=== PATIENT | female | born 1975 | race Two or more races ===

== ENCOUNTER 2017-03-29 17:11 | Emergency (ER) | payer MEDICAID, OTHER ==
[2017-03-29 17:20] VITALS: BP 118/56
== END 2017-03-29 20:18 | disposition left against medical advice (07) ==
LOC: ER 17:11
DX: M79.1 Myalgia (principal); Z53.21 Procedure and treatment not carried out due to patient leaving prior to being seen by health care provider

== ENCOUNTER 2017-03-29 21:45 | Emergency (ER) | payer MEDICAID ==
[~2017-03-29] VITALS: Ht 149.9 cm; Wt 38.6 kg
[2017-03-30] VITALS: BP 128/82
[2017-03-30] MEDS ORDERED: traMADol HCL 50 MG TAB PO ONE (00:45)
== END 2017-03-30 | disposition home or self-care (01) ==
LOC: EDBD 21:45 → ER 21:50
DX: G89.4 Chronic pain syndrome (principal); G80.9 Cerebral palsy, unspecified; Z76.0 Encounter for issue of repeat prescription; Z88.8 Allergy status to other drugs, medicaments and biological substances

== ENCOUNTER 2017-05-02 16:54 | Emergency (ER) | payer MEDICAID ==
[~2017-05-02] VITALS: Ht 152.4 cm; Wt 40.8 kg
[2017-05-02] MEDS ORDERED: NALBUPHINE HCL 10 MG/1ml INJECTION IV ONE (22:00)
[2017-05-02] MEDS ORDERED: LORazepam 2MG/ML-1ML VIAL IV ONE (22:00)
[2017-05-02] MEDS ORDERED: SODIUM CHLORIDE 0.9% 1,000 ML IV ONE (22:00)
[2017-05-02 22:41] LABS: Basophils # (auto) 0.1 uL; Eosinophils # (auto) 0 uL; Hemoglobin 11.6 g/dL (12.2-16.2); Monocytes # (auto) 0.4 uL; Neutrophils # (auto) 8.9 uL
[2017-05-02 22:42] LABS: Basophils % (auto) 0.7 % (0.0-2.0); Hematocrit 35.1 % (36.0-46.0); Lymphocytes # (auto) 0.3 uL; Lymphocytes % (auto) 3.4 % (10.0-50.0); Mean Corpuscular Hemoglobin 28.5 pg (28.0-32.0); Mean Corpuscular Hgb Conc. 33.1 g/dL (32.0-36.0); Mean Corpuscular Volume 85.9 fL (80.0-100.0); Mean Platelet Volume 7.2 fL (6.9-10.8); Monocytes % (auto) 4.3 % (0.0-12.0); Neutrophils % (auto) 91.6 % (37.0-80.0); Platelet Count (auto) 476 10^3/uL (140-450); Red Cell Distribution Width 17.2 % (11.8-14.3); White Blood Cell 9.7 10^3/uL (4.4-10.8)
[2017-05-02 23:00] LABS: Albumin 2.7 g/dL (3.4-5.0); Calcium 7.8 mg/dL (8.5-10.1); Potassium 3.3 mmol/L (3.5-5.1)
[2017-05-02] MEDS ORDERED: HYDROmorphone HCL 2 MG/ML VL IV ONE (23:00)
[2017-05-02 23:07] LABS: BUN/Creatinine Ratio 88.2; Bilirubin, Total 0.4 mg/dL (0.2-1.0); Total Protein 6.1 g/dL (6.4-8.2)
[2017-05-03 01:33] VITALS: BP 148/72
== END 2017-05-03 01:57 | disposition left against medical advice (07) ==
LOC: EDBD 16:54 → ER 16:57
DX: K59.00 Constipation, unspecified (principal); Z72.89 Other problems related to lifestyle; Z53.29 Procedure and treatment not carried out because of patient's decision for other reasons
CPT/HCPCS: 36415; 80053; 85025; 96361; 96374; 96375; 99285; J1170; J2060; J2300; J7030

== ENCOUNTER 2017-05-19 23:16 | Inpatient (IN) | payer MEDICAID ==
[~2017-05-19] VITALS: Ht 152.4 cm; Wt 44.8 kg
[~2017-05-19 23:16] MED LIST: CARB200T PO; HYDR-4683 PO; LISI-646 PO; PRE5T PO
[2017-05-20 00:52] LABS: Basophils # (auto) 0.1 uL; Eosinophils # (auto) 0 uL; Hemoglobin 10.9 g/dL (12.2-16.2); Lymphocytes # (auto) 0.5 uL; Mean Corpuscular Hemoglobin 26.5 pg (28.0-32.0); Monocytes # (auto) 1.1 uL; Neutrophils # (auto) 15.3 uL; Neutrophils % (auto) 90.1 % (37.0-80.0); Red Cell Distribution Width 17.8 % (11.8-14.3)
[2017-05-20 00:54] LABS: Basophils % (auto) 0.3 % (0.0-2.0); Hematocrit 34.1 % (36.0-46.0); Lymphocytes % (auto) 2.9 % (10.0-50.0); Mean Corpuscular Hgb Conc. 31.9 g/dL (32.0-36.0); Mean Corpuscular Volume 83.1 fL (80.0-100.0); Monocytes % (auto) 6.7 % (0.0-12.0); Nucleated Red Blood Cells % 0.2 %; Platelet Count (auto) 392 10^3/uL (140-450); White Blood Cell 16.9 10^3/uL (4.4-10.8)
[2017-05-20 01:11] LABS: Acetaminophen < 2.0 ug/mL (10-30); Salicylate < 1.7 mg/dL (2.8-20.0)
[2017-05-20 01:12] LABS: Alanine Aminotransferase 14 U/L (13-56); Anion Gap 11 (5-15); Aspartate Aminotransferase 11 U/L (15-37); BUN/Creatinine Ratio 62.5; Blood Alcohol < 3.0 mg/dL (0-5); Blood Urea Nitrogen 10 mg/dL (7-18); Calcium 8.8 mg/dL (8.5-10.1); Carbon Dioxide 29 mmol/L (21-32); Chloride 98 mmol/L (98-107); GFR African American 655 mL/min; GFR Non-African American 541 mL/min; Glucose 117 mg/dL (74-106); Sodium 138 mmol/L (136-145)
[2017-05-20 01:17] LABS: Alkaline Phosphatase 95 U/L (45-117)
[2017-05-20 01:21] LABS: Potassium 2.9 mmol/L (3.5-5.1)
[2017-05-20] MEDS ORDERED: POTASSIUM CHL 20 Meq TABLET PO ONE (01:45)
[2017-05-20] MEDS ORDERED: ASPirin 81 mg TAB PO ONE (02:00)
[2017-05-20] MEDS ORDERED: NITROGLYCERIN 0.4 MG SL TAB SL ONE (02:00)
[2017-05-20] MEDS ORDERED: POTASSIUM CHL 10% (20 MEQ/15ML) 15ml ORAL SOLN PO ONE (02:00)
[2017-05-20] MEDS ORDERED: SODIUM CHLORIDE 0.9% 1,000 ML IV ONE ×2 (02:42)
[2017-05-20] MEDS ORDERED: PIPERACILLIN-TAZOB 3.375GM 50 ML IV ONE (02:45)
[2017-05-20] MEDS ORDERED: ACETAMINOPHEN 500 MG TAB PO PRN (03:30)
[2017-05-20] MEDS ORDERED: MORPHINE SULF INJ 2 MG/ML SYRINGE 1ML ONE ×3 (04:13→14:34)
[2017-05-20] MEDS: ONDANSETRON HCL 4 MG/2 ML VIAL IV PRN (04:23)
[2017-05-20] MEDS: MORPHINE SULFATE 4 MG/ML SYR/VIAL IV PRN ×2 (04:23→09:59)
[2017-05-20] MEDS ORDERED: SODIUM CHLORIDE 0.9% 1,000 ML IV SCH (06:15)
[2017-05-20] MEDS: cefTRIAXone 1GM/10ml IVPUSH 10 ML IV SCH (09:16)
[2017-05-20] MEDS: SODIUM CHLORIDE 0.9% 1,000 ML IV SCH ×2 (09:17→20:22)
[2017-05-20] MEDS: GABAPENTIN 300 MG CAP PO SCH ×2 (09:17→22:03)
[2017-05-20] MEDS: HYDROcodone-ACET 5/325MG TAB PO PRN ×2 (09:18→16:36)
[2017-05-20] MEDS: LISINOPRIL 20 MG TAB PO SCH (09:19)
[2017-05-20] MEDS: NITROGLYCERIN 0.4 MG SL TAB SL PRN ×2 (10:25→10:31)
[2017-05-20] MEDS ORDERED: LORazepam 2MG/ML-1ML VIAL ONE (12:36)
[2017-05-20] MEDS ORDERED: LORazepam 2MG/ML-1ML VIAL IV ONE (12:45)
[2017-05-20] MEDS ORDERED: methylPREDNISolone SOD SUCC 40 MG/ML VL IV ONE (13:45)
[2017-05-20] MEDS ORDERED: PANTOPRAZOLE 40 MG TAB PO ONE (14:00)
[2017-05-20] MEDS ORDERED: ENOXAPARIN SOD 30 MG/0.3 ML SYRINGE SC ONE (14:00)
[2017-05-20] MEDS: MORPHINE SULFATE 10 MG/ML INJ 1ML SDV IV PRN ×2 (14:49→22:04)
[2017-05-20] MEDS: LORazepam 0.5 MG TAB PO PRN (16:36)
[2017-05-20 22:00] VITALS: BP 86/60
[2017-05-20] MEDS: methylPREDNISolone SOD SUCC 40 MG/ML VL IV SCH (22:03)
[2017-05-20] MEDS: carBAMazepine 200 MG TAB PO SCH (22:03)
[2017-05-20 22:35] VITALS: BP 99/56
[2017-05-21] VITALS (7 sets, daily range): BP systolic 92–117; BP diastolic 57–75
[2017-05-21] MEDS: HYDROcodone-ACET 5/325MG TAB PO PRN ×3 (00:40→16:55)
[2017-05-21] MEDS: SODIUM CHLORIDE 0.9% 1,000 ML IV SCH ×2 (05:40→15:30)
[2017-05-21 07:47] LABS: Basophils # (auto) 0 uL; Basophils % (auto) 0.1 % (0.0-2.0); Eosinophils # (auto) 0 uL; Hemoglobin 9.2 g/dL (12.2-16.2); Lymphocytes # (auto) 0.2 uL; Mean Corpuscular Hemoglobin 27.4 pg (28.0-32.0); Mean Corpuscular Hgb Conc. 31.7 g/dL (32.0-36.0); Mean Corpuscular Volume 86.5 fL (80.0-100.0); Monocytes # (auto) 0.1 uL; Monocytes % (auto) 2.1 % (0.0-12.0); Neutrophils # (auto) 3.4 uL; Neutrophils % (auto) 91.8 % (37.0-80.0); Nucleated Red Blood Cells % 0.3 %; Platelet Count (auto) 228 10^3/uL (140-450); Red Blood Cells 3.35 10^6/uL (4.0-5.20); Red Cell Distribution Width 18.1 % (11.8-14.3); White Blood Cell 3.7 10^3/uL (4.4-10.8)
[2017-05-21 08:34] LABS: Anion Gap 9 (5-15); Blood Urea Nitrogen 9 mg/dL (7-18); Calcium 8.4 mg/dL (8.5-10.1); Carbon Dioxide 26 mmol/L (21-32); Chloride 104 mmol/L (98-107); Glucose 89 mg/dL (74-106); Potassium 4.1 mmol/L (3.5-5.1); Sodium 139 mmol/L (136-145)
[2017-05-21] MEDS: cefTRIAXone 1GM/10ml IVPUSH 10 ML IV SCH (09:33)
[2017-05-21 09:49] LABS: GFR African American 705 mL/min; GFR Non-African American 583 mL/min
[2017-05-21] MEDS: LISINOPRIL 20 MG TAB PO SCH (10:00)
[2017-05-21] MEDS: PANTOPRAZOLE 40 MG TAB PO SCH (10:13)
[2017-05-21] MEDS: carBAMazepine 200 MG TAB PO SCH ×2 (10:13→22:06)
[2017-05-21] MEDS: methylPREDNISolone SOD SUCC 40 MG/ML VL IV SCH (10:13)
[2017-05-21] MEDS: GABAPENTIN 300 MG CAP PO SCH ×2 (10:13→22:06)
[2017-05-21] MEDS: ENOXAPARIN SOD 30 MG/0.3 ML SYRINGE SC SCH (10:19)
[2017-05-21] MEDS: MORPHINE SULFATE 10 MG/ML INJ 1ML SDV IV PRN (11:34)
[2017-05-21] MEDS ORDERED: IOHEXOL 350 MG/ML 100ML IJ ONE (12:19)
[2017-05-21] MEDS: LORazepam 0.5 MG TAB PO PRN ×2 (12:33→20:37)
[2017-05-21 14:30] LABS: % Iron Saturation 6.1 % (15-50)
[2017-05-21] MEDS: HYDROmorphone HCL 2 MG/ML VL IV PRN ×2 (18:22→23:33)
[2017-05-21 22:01] LABS: Urine Bacteria NONE SEEN /hpf (None Seen); Urine Blood Negative /uL (Negative); Urine Mucus FEW (None Seen); Urine Specific Gravity 1.024 (1.001-1.035); Urine WBC 11 /hpf (0 - 5)
[2017-05-21] MEDS: methylPREDNISolone SOD SUCC 125 MG/2 ML VL IV SCH (22:06)
[2017-05-21 22:19] LABS: Alcohol, Urine < 3.0 mg/dL (0-5); Amphetamine Screen, Urine POSITIVE (NEGATIVE); Barbiturate Scree,Urine NEGATIVE (NEGATIVE); Benzodiazephine Screen, Urine NEGATIVE (NEGATIVE); Cannabinoid Screen, Urine POSITIVE (NEGATIVE); Cocaine Screen, Urine NEGATIVE (NEGATIVE); Opiate Scree,Urine POSITIVE (NEGATIVE); Phencyclidine Screen, Urine NEGATIVE (NEGATIVE)
[2017-05-22] MEDS: SODIUM CHLORIDE 0.9% 1,000 ML IV SCH ×3 (01:30→21:30)
[2017-05-22] MEDS: HYDROmorphone HCL 2 MG/ML VL IV PRN ×4 (04:29→21:00)
[2017-05-22 05:58] VITALS: BP 94/63
[2017-05-22 06:16] LABS: Hematocrit 27.2 % (36.0-46.0); Hemoglobin 8.7 g/dL (12.2-16.2)
[2017-05-22 06:31] LABS: BUN/Creatinine Ratio 82.4; Calcium 8.2 mg/dL (8.5-10.1); Potassium 3.9 mmol/L (3.5-5.1)
[2017-05-22 09:00] VITALS: BP 74/44
[2017-05-22] MEDS: methylPREDNISolone SOD SUCC 125 MG/2 ML VL IV SCH ×2 (09:55→22:30)
[2017-05-22] MEDS: PANTOPRAZOLE 40 MG TAB PO SCH (09:56)
[2017-05-22] MEDS: ONDANSETRON HCL 4 MG/2 ML VIAL IV PRN ×2 (09:56→14:35)
[2017-05-22] MEDS: GABAPENTIN 300 MG CAP PO SCH ×2 (09:56→22:30)
[2017-05-22] MEDS: ENOXAPARIN SOD 30 MG/0.3 ML SYRINGE SC SCH (09:56)
[2017-05-22] MEDS: carBAMazepine 200 MG TAB PO SCH ×2 (09:56→22:30)
[2017-05-22 13:18] VITALS: BP 108/76
[2017-05-22 17:49] VITALS: BP 89/58
[2017-05-23 05:00] VITALS: BP 97/49
[2017-05-23] MEDS: HYDROmorphone HCL 2 MG/ML VL IV PRN (06:43)
[2017-05-23 08:00] VITALS: BP 91/65
[2017-05-23 10:02] LABS: Hematocrit 31.7 % (36.0-46.0); Hemoglobin 9.9 g/dL (12.2-16.2); Mean Corpuscular Hemoglobin 26.8 pg (28.0-32.0); Mean Corpuscular Hgb Conc. 31.4 g/dL (32.0-36.0); Mean Corpuscular Volume 85.5 fL (80.0-100.0); Platelet Count (auto) 276 10^3/uL (140-450); Red Blood Cells 3.71 10^6/uL (4.0-5.20); Red Cell Distribution Width 18.4 % (11.8-14.3)
[2017-05-23] MEDS: methylPREDNISolone SOD SUCC 125 MG/2 ML VL IV SCH ×2 (10:03→22:05)
[2017-05-23] MEDS: GABAPENTIN 300 MG CAP PO SCH ×2 (10:03→22:05)
[2017-05-23] MEDS: ENOXAPARIN SOD 30 MG/0.3 ML SYRINGE SC SCH (10:03)
[2017-05-23] MEDS: carBAMazepine 200 MG TAB PO SCH ×2 (10:03→22:05)
[2017-05-23] MEDS: PANTOPRAZOLE 40 MG TAB PO SCH (10:03)
[2017-05-23 10:04] LABS: Band Neutrophils % (manual) 0; Basophils % (manual) 0 (0.0-2.0); Blast Cells 0; Eosinophils % (manual) 0 (0-7); Metamyelocytes % 0; Myelocytes % 0; Promyelocytes % 0; Reactive Lymphocytes 0
[2017-05-23] MEDS ORDERED: HYDROmorphone HCL 2 MG/ML VL IV PRN ×2 (10:15→10:30)
[2017-05-23 12:47] LABS: Lymphocytes % (manual) 21 (10.0-50.0); Monocytes % (manual) 2 (0-12); White Blood Cell 7.6 10^3/uL (4.4-10.8)
[2017-05-23 13:00] VITALS: BP 107/70
[2017-05-23] MEDS: HYDROmorphone HCL 2 MG TAB PO PRN ×2 (14:30→22:05)
[2017-05-23] MEDS: SODIUM CHLORIDE 0.9% 1,000 ML IV SCH ×2 (16:18→17:05)
[2017-05-23] MEDS: LORazepam 0.5 MG TAB PO PRN ×2 (16:19→17:04)
[2017-05-23 16:57] VITALS: BP 128/97
[2017-05-23] MEDS: BOOST PLUS 8 ounce PO SCH (17:37)
[2017-05-23 22:16] VITALS: BP 114/73
[2017-05-24] MEDS: SODIUM CHLORIDE 0.9% 1,000 ML IV SCH ×3 (03:30→23:16)
[2017-05-24] MEDS: HYDROmorphone HCL 2 MG TAB PO PRN ×3 (05:05→23:16)
[2017-05-24 05:30] VITALS: BP 150/86
[2017-05-24] MEDS: BOOST PLUS 8 ounce PO SCH ×3 (08:00→17:50)
[2017-05-24 09:00] VITALS: BP 125/74
[2017-05-24] MEDS: ENOXAPARIN SOD 30 MG/0.3 ML SYRINGE SC SCH (10:00)
[2017-05-24] MEDS: PANTOPRAZOLE 40 MG TAB PO SCH (10:00)
[2017-05-24] MEDS: GABAPENTIN 300 MG CAP PO SCH ×3 (10:00→22:33)
[2017-05-24] MEDS: carBAMazepine 200 MG TAB PO SCH ×3 (10:00→22:33)
[2017-05-24] MEDS: methylPREDNISolone SOD SUCC 125 MG/2 ML VL IV SCH ×2 (10:00→22:33)
[2017-05-24] MEDS ORDERED: HYDROmorphone HCL 2 MG/ML VL IV PRN (11:00)
[2017-05-24 13:00] VITALS: BP 107/71
[2017-05-24] MEDS: LORazepam 0.5 MG TAB PO PRN ×2 (14:38→23:12)
[2017-05-24 17:55] VITALS: BP 114/83
[2017-05-24 22:07] VITALS: BP 90/60
[2017-05-25] MEDS: HYDROmorphone HCL 2 MG TAB PO PRN ×4 (04:40→21:17)
[2017-05-25 05:22] VITALS: BP 110/78
[2017-05-25 05:54] LABS: Basophils # (auto) 0 uL; Basophils % (auto) 0.6 % (0.0-2.0); Eosinophils # (auto) 0 uL; Hematocrit 28.2 % (36.0-46.0); Hemoglobin 8.9 g/dL (12.2-16.2); Lymphocytes # (auto) 0.5 uL; Lymphocytes % (auto) 8.8 % (10.0-50.0); Mean Corpuscular Hemoglobin 27.8 pg (28.0-32.0); Mean Corpuscular Hgb Conc. 31.6 g/dL (32.0-36.0); Mean Corpuscular Volume 88.1 fL (80.0-100.0); Monocytes # (auto) 0.2 uL; Neutrophils # (auto) 4.6 uL; Neutrophils % (auto) 86.6 % (37.0-80.0); Nucleated Red Blood Cells % 0.5 %; Platelet Count (auto) 229 10^3/uL (140-450); Red Cell Distribution Width 18.3 % (11.8-14.3); White Blood Cell 5.3 10^3/uL (4.4-10.8)
[2017-05-25 06:11] LABS: Anion Gap 5 (5-15); BUN/Creatinine Ratio 93.3; Blood Urea Nitrogen 14 mg/dL (7-18); Calcium 7.5 mg/dL (8.5-10.1); Carbon Dioxide 29 mmol/L (21-32); Chloride 104 mmol/L (98-107); GFR African American 705 mL/min; GFR Non-African American 583 mL/min; Glucose 103 mg/dL (74-106); Sodium 138 mmol/L (136-145)
[2017-05-25 08:00] VITALS: BP 117/81
[2017-05-25] MEDS: SODIUM CHLORIDE 0.9% 1,000 ML IV SCH ×2 (10:18→19:30)
[2017-05-25] MEDS: methylPREDNISolone SOD SUCC 125 MG/2 ML VL IV SCH (10:18)
[2017-05-25] MEDS: carBAMazepine 200 MG TAB PO SCH ×2 (10:19→22:03)
[2017-05-25] MEDS: GABAPENTIN 300 MG CAP PO SCH ×2 (10:19→22:03)
[2017-05-25] MEDS: ENOXAPARIN SOD 30 MG/0.3 ML SYRINGE SC SCH (10:19)
[2017-05-25] MEDS: PANTOPRAZOLE 40 MG TAB PO SCH (10:19)
[2017-05-25] MEDS: BOOST PLUS 8 ounce PO SCH ×2 (10:20→17:19)
[2017-05-25 13:00] VITALS: BP 118/90
[2017-05-25] MEDS: LORazepam 0.5 MG TAB PO PRN (15:09)
[2017-05-25 17:00] VITALS: BP 129/91
[2017-05-25 21:45] VITALS: BP 156/97
[2017-05-26] MEDS: LORazepam 0.5 MG TAB PO PRN ×2 (03:00→18:19)
[2017-05-26] MEDS: HYDROmorphone HCL 2 MG TAB PO PRN ×4 (04:21→23:26)
[2017-05-26 05:30] VITALS: BP 109/75
[2017-05-26] MEDS: SODIUM CHLORIDE 0.9% 1,000 ML IV SCH ×2 (06:04→21:08)
[2017-05-26] MEDS: BOOST PLUS 8 ounce PO SCH ×3 (07:22→14:07)
[2017-05-26 09:00] VITALS: BP 106/77
[2017-05-26] MEDS ORDERED: methylPREDNISolone SOD SUCC 40 MG/ML VL IV SCH (10:00)
[2017-05-26] MEDS: carBAMazepine 200 MG TAB PO SCH ×2 (10:38→22:05)
[2017-05-26] MEDS: predniSONE 5 MG TAB PO SCH (10:38)
[2017-05-26] MEDS: ENOXAPARIN SOD 30 MG/0.3 ML SYRINGE SC SCH (10:38)
[2017-05-26] MEDS: PANTOPRAZOLE 40 MG TAB PO SCH (10:39)
[2017-05-26] MEDS: GABAPENTIN 300 MG CAP PO SCH ×2 (10:39→22:05)
[2017-05-26] MEDS ORDERED: PANT40T PO (11:36)
[2017-05-26 12:38] VITALS: BP 95/63
[2017-05-26 13:00] VITALS: BP 95/63
[2017-05-26 17:00] VITALS: BP 128/98
[2017-05-26 22:00] VITALS: BP 100/64
[2017-05-27] MEDS: LORazepam 0.5 MG TAB PO PRN (03:19)
[2017-05-27] MEDS: HYDROcodone-ACET 5/325MG TAB PO PRN (03:20)
[2017-05-27] MEDS: HYDROmorphone HCL 2 MG TAB PO PRN ×2 (05:31→10:04)
[2017-05-27 06:00] VITALS: BP 108/76
[2017-05-27] MEDS: BOOST PLUS 8 ounce PO SCH ×2 (07:37→08:00)
[2017-05-27 08:00] VITALS: BP 111/80
[2017-05-27 09:00] VITALS: BP 111/80
[2017-05-27] MEDS: predniSONE 5 MG TAB PO SCH (10:04)
[2017-05-27] MEDS: PANTOPRAZOLE 40 MG TAB PO SCH (10:04)
[2017-05-27] MEDS: GABAPENTIN 300 MG CAP PO SCH (10:04)
[2017-05-27] MEDS: carBAMazepine 200 MG TAB PO SCH (10:04)
[2017-05-27] MEDS: ENOXAPARIN SOD 30 MG/0.3 ML SYRINGE SC SCH (10:05)
== END 2017-05-27 12:45 | disposition hospice, home (50) | DRG 346 ==
LOC: EDBD 23:16 → ER 23:27 → TELE 23:28 → TELE-WESTW 05-20 17:20
PROVIDERS: ADMIT Nurse Practitioner Family; ATTEND Internal Medicine
DX: M06.9 Rheumatoid arthritis, unspecified (principal); E44.0 Moderate protein-calorie malnutrition; R07.89 Other chest pain; F15.10 Other stimulant abuse, uncomplicated; G89.4 Chronic pain syndrome; I10 Essential (primary) hypertension; E87.6 Hypokalemia; G40.909 Epilepsy, unspecified, not intractable, without status epilepticus; F41.1 Generalized anxiety disorder; M21.80 Other specified acquired deformities of unspecified limb; G80.8 Other cerebral palsy; F12.10 Cannabis abuse, uncomplicated; Z88.6 Allergy status to analgesic agent; Z88.8 Allergy status to other drugs, medicaments and biological substances; Z79.899 Other long term (current) drug therapy; Z87.440 Personal history of urinary (tract) infections; Z82.49 Family history of ischemic heart disease and other diseases of the circulatory system; Z71.51 Drug abuse counseling and surveillance of drug abuser; Z71.3 Dietary counseling and surveillance
CPT/HCPCS: 36415; 71045; 78582; 80048; 80053; 80307; 80320; 80329; 81001; 83540; 83550; 83605; 83735; 84132; 84484; 84702; 85007; 85014; 85018; 85025; 85027; 85379; 87040; 87086; 93005; 93306; 96361; 96365; 96375; 96376; 97163; J2405; J2543